=== PATIENT | female | born 1990 | race Caucasian/White ===

== ENCOUNTER 2018-01-01 16:51 | Emergency (ER) | payer MEDICAID ==
[~2018-01-01] VITALS: Ht 165.1 cm; Wt 86.2 kg
[2018-01-01] MEDS ORDERED: NAPROSYN500 MG PO (17:23)
[2018-01-01 17:30] VITALS: BP 133/85
== END 2018-01-01 17:31 | disposition home or self-care (01) ==
LOC: M.ERS 16:51
DX: M72.2 Plantar fascial fibromatosis (principal); J45.909 Unspecified asthma, uncomplicated; Z88.1 Allergy status to other antibiotic agents

== ENCOUNTER 2018-03-21 16:18 | Emergency (ER) | payer OTHER, MEDICAID ==
[~2018-03-21] VITALS: Ht 165.1 cm; Wt 86.2 kg
[~2018-03-21 16:18] MED LIST: NAPROSYN500 MG PO
[2018-03-21] MEDS ORDERED: TRAMADOL 50 MG50 MG PO (17:41)
[2018-03-21] MEDS ORDERED: IBUPROFEN 800800 M1 PO (17:41)
[2018-03-21 18:00] VITALS: BP 137/64
== END 2018-03-21 18:01 | disposition home or self-care (01) ==
LOC: M.ERS 16:18
DX: M54.2 Cervicalgia (principal); M54.6 Pain in thoracic spine; J45.909 Unspecified asthma, uncomplicated; Z88.1 Allergy status to other antibiotic agents